=== PATIENT | female | born 1930 | race Caucasian/White ===

== ENCOUNTER 2017-05-06 10:18 | Emergency (ER) | payer MEDICARE, BC ==
[~2017-05-06] VITALS: Ht 162.6 cm; Wt 63.0 kg
[~2017-05-06 10:18] MED LIST: ASPI81 PO; GLUCTAB PO; HYDR-2768 PO; MACR100C PO; RAMI10CA PO; TOPR100T15 PO; ZOCO40TA PO
[2017-05-06 11:05] VITALS: BP 210/93; PULSE 71; RESP 16; TEMP 99.3; O2SAT 96
[2017-05-06 14:15] VITALS: O2SAT 95
[2017-05-06] MEDS ORDERED: SODIUM CHLORIDE 0.9% FLUSH 10 ML FLUSH IVF PRN (14:15)
[2017-05-06] MEDS ORDERED: RESP: ALBUTEROL 2.5 MG/IPRATROPIUM 0.5 MG NEB (SCH) INH ONE (14:15)
[2017-05-06 14:18] VITALS: BP 182/87; O2SAT 95
[2017-05-06] MEDS ORDERED: OXYB5TAB8 PO (14:18)
[2017-05-06] MEDS ORDERED: LISI-515 PO (14:18)
[2017-05-06] MEDS ORDERED: FURO20TA PO (14:18)
[2017-05-06] MEDS ORDERED: FERR325T18 PO (14:18)
[2017-05-06] MEDS ORDERED: VITA1000 PO (14:18)
[2017-05-06] MEDS ORDERED: ASPI81TA23 PO (14:18)
[2017-05-06] MEDS ORDERED: GLIP1TAB51 PO (14:18)
[2017-05-06] MEDS ORDERED: ISOS30TA3 PO (14:18)
[2017-05-06] MEDS ORDERED: METO50TA PO (14:18)
[2017-05-06] MEDS ORDERED: AMLO10TA2 PO (14:18)
[2017-05-06] MEDS ORDERED: OMEP40CA2 PO (14:18)
[2017-05-06] MEDS ORDERED: DOXA1TAB35 PO (14:18)
[2017-05-06] MEDS ORDERED: ALBUAER3 INH (14:50)
[2017-05-06] MEDS ORDERED: AZIT250T3 PO (14:50)
--- NOTE | 2017-05-06 14:53 | PD ---
HPI Chief Complaint: Cold / Flu Symptoms Time Seen by Provider: 13:50 Travel History International Travel<30 days: No Contact w/Intl Traveler<30days: No Traveled to known affect area: No History of Present Illness HPI The patient is 86 years old and arrives to the ER with a complaint of sore throat. It is worse with swallowing. The duration has been about 2 days. Associated symptoms include voice change. She reports similar symptoms in the past were ultimately diagnosed as pneumonia and required inpatient management. She reports productive cough with phlegm. No fever reported. No diaphoresis chest pain or vomiting. PFSH Past Medical History Arthritis: No Autoimmune Disease: No Cancer: Yes Cardiovascular Problems: No Chemotherapy: No Diabetes: Yes Patient Takes Glucophage: No Diminished Hearing: No Gastrointestinal Disorders: Yes GERD: Yes Genitourinary: No Hiatal Hernia: No Hypertension: Yes Immune Disorder: No Musculoskeletal: Yes Neurologic: No Psychiatric: No Reproductive: No Respiratory: No Radiation Therapy: No Ulcer: Yes Influenza Vaccination: Yes ?: Not Past Surgical History Abdominal Surgery: No Cardiac Surgery: No Ear Surgery: No Endocrine Surgery: No Eye Surgery: No Genitourinary Surgery: No Gynecologic Surgery: No Mastectomy: Yes (LEFT ) Oral Surgery: No Thoracic Surgery: Yes (left side mastectomy) Other Surgery: Yes Social History Alcohol Use: No Tobacco Use: No Substance Use: No Allergies-Medications (Allergen,Severity, Reaction): Coded Allergies: Sulfa (Sulfonamide Antibiotics) (Unverified Allergy, Severe, 05/06/17) acetaminophen (Unverified Allergy, Severe, 05/06/17) amoxicillin (Unverified Allergy, Severe, 05/06/17) ciprofloxacin (Unverified Allergy, Severe, 05/06/17) dipyridamole (Unverified Allergy, Severe, 05/06/17) fexofenadine (Unverified Allergy, Severe, 05/06/17) ibuprofen (Unverified Allergy, Severe, 05/06/17) meperidine (Unverified Allergy, Severe, 05/06/17) nifedipine (Unverified Allergy, Severe, 05/06/17) propoxyphene (Unverified Allergy, Severe, 05/06/17) rosiglitazone (Unverified Allergy, Severe, 05/06/17) Reported Meds & Prescriptions Reported Meds & Active Scripts Active Proair Hfa 8.5 GM Inh (Albuterol Sulfate) 90 Mcg/Act Aer 2 Puff INH Q6H PRN 108 mcg/actuation Azithromycin 250 Mg Tab 250 Mg PO DIRECTED Take 2 tabs (500 mg) on day 1 then 1 tab daily x 4 days. Reported Isosorbide Mononitrate ER (Isosorbide Mononitrate) 30 Mg Andres 30 Mg PO HS Doxazosin (Doxazosin Mesylate) 2 Mg Tab 2 Mg PO DAILY Amlodipine (Amlodipine Besylate) 10 Mg Tab 10 Mg PO HS Vitamin D-1000 (Cholecalciferol) 1,000 Unit Tab 1,000 Units PO DAILY Lisinopril 20 Mg Tab 20 Mg PO BID Aspirin EC (Aspirin) 81 Mg Tabdr 81 Mg PO DAILY Ditropan (Oxybutynin Chloride) 5 Mg Tab 5 Mg PO Q8HR Metoprolol Tartrate 50 Mg Tab 50 Mg PO BID Omeprazole 40 Mg Cap 40 Mg PO DAILY Furosemide 20 Mg Tab 20 Mg PO BID Glipizide ER (Glipizide) 10 Mg Andres 15 Mg PO BID Take with breakfast or first main meal of the day Ferrous Sulfate 325 Mg (65 Mg Iron) Tablet 325 Mg PO BIDPC Review of Systems Except as stated in HPI: all other systems reviewed are Neg General / Constitutional: No: Fever, Chills Physical Exam Narrative GENERAL: Well-appearing 86-year-old female Vital Signs Date Time Temp Pulse Resp B/P (MAP) Pulse Ox O2 Delivery O2 Flow Rate FiO2 05/06/17 14:18 182/87 (118) 95 Room Air 05/06/17 14:15 95 21 05/06/17 11:05 99.3 71 16 210/93 (132) 96 SKIN: Warm and dry. HEAD: Atraumatic. Normocephalic. EYES: Pupils equal and round. No scleral icterus. No injection or drainage. ENT: No nasal bleeding or discharge. Mucous membranes pink and moist. Posterior oropharynx is widely patent without asymmetry, erythema or abscess. NECK: Trachea midline. No JVD. CARDIOVASCULAR: Regular rate and rhythm. RESPIRATORY: No accessory muscle use. Clear to auscultation. Breath sounds equal bilaterally. GASTROINTESTINAL: Abdomen soft, non-tender, nondistended. Hepatic and splenic margins not palpable. MUSCULOSKELETAL: Extremities without clubbing, cyanosis, or edema. No obvious deformities. NEUROLOGICAL: Awake and alert. No obvious cranial nerve deficits. Motor grossly within normal limits. Five out of 5 muscle strength in the arms and legs. Normal speech. PSYCHIATRIC: Appropriate mood and affect; insight and judgment normal. Data Data Last Documented VS Vital Signs Date Time Temp Pulse Resp B/P (MAP) Pulse Ox O2 Delivery O2 Flow Rate FiO2 05/06/17 14:18 182/87 (118) 95 Room Air 05/06/17 14:15 21 05/06/17 11:05 99.3 71 16 Orders Orders Influenzae A/B Antigen (05/06/17 14:04) Chest, Single Ap (05/06/17 14:04) Sodium Chloride 0.9% Flush (Ns Flush) (05/06/17 14:15) Albuterol-Ipratropium Neb (Duoneb Neb) (05/06/17 14:15) Ed Discharge Order (05/06/17 15:02) MDM Medical Decision Making Medical Screen Exam Complete: Yes Emergency Medical Condition: Yes Medical Record Reviewed: Yes Differential Diagnosis Pneumonia, bronchitis, sepsis Narrative Course CXR: No dense consolidation Influenza study: negative Pt to go home with albuterol inhaler and Azithromycin. Return precautions discussed. Diagnosis Primary Impression: Bronchitis Referrals: Primary Care Physician 2 days Med/Other Pt SpecificInfo: Prescription(s) given Scripts Albuterol 8.5 GM Inh (Proair Hfa 8.5 GM Inh) 90 Mcg/Act Aer 2 PUFF INH Q6H Y for SHORTNESS OF BREATH, #1 INHALER 0 Refills 108 mcg/actuation Prov: Eddie Delgadillo MD 05/06/17 Azithromycin (Azithromycin) 250 Mg Tab 250 MG PO DIRECTED for Infection, #6 TAB 0 Refills Take 2 tabs (500 mg) on day 1 then 1 tab daily x 4 days. Prov: Eddie Delgadillo MD 05/06/17 Disposition: DISCHARGE HOME Condition: Stable Eddie Delgadillo MD May 06, 2017 14:52
--- NOTE | 2017-05-06 15:01 | RADRPT ---
EXAM DATE/TIME: 05/06/2017 14:29 [facility] COMPARISON: No previous studies available for comparison. INDICATIONS : Short of breath MEDICAL HISTORY : Hypertension. Gastroesophageal reflux disease. SURGICAL HISTORY : Mastectomy, left. ENCOUNTER: Initial ACUITY: 1 day PAIN SCORE: 0/10 LOCATION: Bilateral chest FINDINGS: A single AP erect view of the chest was obtained demonstrates a moderate to large retrocardiac hernia . A streaky opacity at the lung bases with no definite consolidation. The heart size is mildly enlarg ed with perihilar edema. The costophrenic angles are not well visualized. Atherosclerotic changes are present in the aorta. CONCLUSION: 1. Mild cardiomegaly with no definite perihilar edema. 2. Moderate to large retrocardiac hiatal hernia. 3. Streaky opacity at the lung bases most characteristic of atelectasis or scarring. Daniel Partida MD on May 06, 2017 at 14:58 Board Certified Radiologist. This report was verified electronically.
== END 2017-05-06 15:20 | disposition home or self-care (01) ==
LOC: PHED 10:18 → PHEFT 15:20
DX: J40 Bronchitis, not specified as acute or chronic (principal); K44.9 Diaphragmatic hernia without obstruction or gangrene; E11.9 Type 2 diabetes mellitus without complications; K21.9 Gastro-esophageal reflux disease without esophagitis; I10 Essential (primary) hypertension; Z79.82 Long term (current) use of aspirin; Z79.899 Other long term (current) drug therapy; Z88.2 Allergy status to sulfonamides; Z88.6 Allergy status to analgesic agent
CPT/HCPCS: 71045; 87804; 94664; 99284